=== PATIENT | female | born 1935 | race Two or more races ===

== ENCOUNTER 2019-03-04 08:14 | Emergency (ER) | payer OTHER ==
[~2019-03-04] VITALS: Ht 167.6 cm; Wt 81.2 kg
--- NOTE | 2019-03-04 08:20 | NUR ---
[facility],C/O ITCHY GENERALIZED BODY RASH. PT AAOX4, VSS, BREATHING EVEN AND UNLABORED W/ NAD, AMBULATORY W/ ASSISTANCE. PT CONNECTED TO THE MONITOR.
--- NOTE | 2019-03-04 08:43 | NUR ---
AWAITING FOR MD HASKINS.
--- NOTE | 2019-03-04 09:23 | NUR ---
CALLED [facility] FOR TRANSPORT, ETA 30MIN TRIP# [id number]
--- NOTE | 2019-03-04 09:28 | NUR ---
[facility] [phone]
[2019-03-04] MEDS ORDERED: BENAZEPRIL HCL 10 MG TABLET ONE (10:22)
[2019-03-04] MEDS ORDERED: BENAZEPRIL HCL 10 MG TABLET PO ONE (10:30)
--- NOTE | 2019-03-04 12:27 | NUR ---
ETA 1400 TRIP #[id number]
[2019-03-04 13:51] VITALS: BP 149/84
== END 2019-03-04 13:52 ==
LOC: ER 08:21
DX: B86 Scabies (principal); I10 Essential (primary) hypertension; E11.9 Type 2 diabetes mellitus without complications; Z90.710 Acquired absence of both cervix and uterus; Z90.89 Acquired absence of other organs; Z98.890 Other specified postprocedural states; Z88.0 Allergy status to penicillin; Z88.2 Allergy status to sulfonamides

== ENCOUNTER 2019-03-21 11:05 | Emergency (ER) | payer OTHER ==
[~2019-03-21] VITALS: Ht 167.6 cm; Wt 70.8 kg
--- NOTE | 2019-03-21 11:10 | NUR ---
SEEN BY DR GALLEGOS
--- NOTE | 2019-03-21 11:11 | NUR ---
PT DANNY, FROM ALF HOME, C/O DIARRHEA SINCE YESTERDAY. PT STATES SHE HAS ABDOMINAL PAIN. PT AAOX2, VSS, BREATHING EVEN AND UNLABORED ON ROOM AIR. PT CONNECTED TO THE MONITOR AND POX
--- NOTE | 2019-03-21 11:23 | NUR ---
OFFERED A BEDPAIN FOR URINE SAMPLE, PER PATIENT, "NO" WILL OFFER AGAIN LATER.
[2019-03-21 11:24] LABS: BASOPHILS % (AUTO) 0.5 % (0.0-2.0); EOSINOPHILS % (AUTO) 0.4 % (0.0-6.0); HEMATOCRIT 41 % (33-45); HEMOGLOBIN 13.3 g/dL (11.5-14.8); LYMPHOCYTES # (AUTO) 1.2 /CMM (0.8-4.8); LYMPHOCYTES % (AUTO) 11.2 % (20.0-44.0); MEAN CORPUSCULAR HGB CONC 33 g/dl (31.0-36.0); MEAN CORPUSCULAR VOLUME 86 fL (82-100); MONOCYTES # (AUTO) 0.8 /CMM (0.1-1.30); MONOCYTES % (AUTO) 7.1 % (2.0-12.0); NEUTROPHILS # (AUTO) 8.7 /CMM (1.8-8.9); NEUTROPHILS % (AUTO) 80.8 % (43.0-81.0); PLATELET COUNT (AUTO) 181 /CMM (150-450); RED BLOOD CELL COUNT(AUTO) 4.73 MIL/uL (4.0-5.2); WHITE BLOOD COUNT (AUTO) 10.7 K/uL (4.3-11.0)
--- NOTE | 2019-03-21 11:28 | NUR ---
SPOKE WITH "LAURIE" AT [facility], PER LAURIE, WILLING TO TAKE PATIENT BACK.
[2019-03-21 11:32] LABS: CALCIUM, SERUM 9.9 mg/dL (8.5-10.1); CARBON DIOXIDE 23 mmol/L (21-32); CHLORIDE 103 mmol/L (98-107); CREATININE 1.5 mg/dL (0.6-1.3); GLUCOSE 119 mg/dL (74-106); POTASSIUM 5.1 mmol/L (3.5-5.1); SODIUM SERUM 140 mmol/L (136-145); UREA NITROGEN, BLOOD 27 mg/dL (7-18)
[2019-03-21 11:38] LABS: ALANINE AMINOTRANSFERASE 20 U/L (12-78); ALBUMIN 3.8 g/dL (3.4-5.0); ALKALINE PHOSPHATASE 102 U/L (46-116); ASPARTATE AMINOTRANSFERASE 16 U/L (15-37); BILIRUBIN,DIRECT 0.2 mg/dL (0.0-0.2); BILIRUBIN,TOTAL 1.4 mg/dL (0.2-1.0); TOTAL PROTEIN, SERUM 8.2 g/dL (6.4-8.2)
--- NOTE | 2019-03-21 11:49 | NUR ---
CALLED [facility] FOR BLS [facility]. ETA 30 MIN TRIP# [id number]
--- NOTE | 2019-03-21 11:55 | NUR ---
ASKED PATIENT IF SHE NEEDS A BED BORGES, PER PATIENT, "NO"
--- NOTE | 2019-03-21 12:27 | NUR ---
Patient discharged to FACILITY in stable condition. Written and verbal after care instructions given. Patient verbalizes understanding of instruction.
[2019-03-21 12:28] VITALS: BP 125/78
--- NOTE | 2019-03-21 12:33 | NUR ---
REPORT GIVEN TO [facility]. PATIENT IN STABLE CONDITION. NO EPISODE OF DIARRHEA AT THIS TIME, UNABLE TO COLLECT URINE AND C.DIFF SPECIMEN, DR. GALLEGOS AWARE. PATIENT LEFT IN STABLE CONDITION TO [facility].
== END 2019-03-21 12:41 ==
LOC: ER 11:07
DX: R19.7 Diarrhea, unspecified (principal); I10 Essential (primary) hypertension; E11.9 Type 2 diabetes mellitus without complications; Z90.710 Acquired absence of both cervix and uterus; Z90.89 Acquired absence of other organs; Z98.890 Other specified postprocedural states; Z88.0 Allergy status to penicillin; Z88.2 Allergy status to sulfonamides
CPT/HCPCS: 36415; 80048-TC; 80076-TC; 85025-TC

== ENCOUNTER 2020-04-20 10:45 | Emergency (ER) | payer MEDICARE, OTHER ==
[~2020-04-20] VITALS: Ht 167.6 cm; Wt 70.3 kg
[2020-04-20] MEDS ORDERED: QUET50TA PO (11:03)
[2020-04-20] MEDS ORDERED: BENA10TA74 PO (11:03)
[2020-04-20] MEDS ORDERED: ESCI20TA PO (11:03)
[2020-04-20] MEDS ORDERED: OMEP40CA13 PO (11:03)
[2020-04-20] MEDS ORDERED: LEVE500T20 PO (11:03)
[2020-04-20] MEDS ORDERED: LEVO25TA9 PO (11:03)
[2020-04-20] MEDS ORDERED: DONE10TA44 PO (11:03)
[2020-04-20] MEDS ORDERED: AMLO-212 PO (11:03)
[2020-04-20 11:52] LABS: BASOPHILS % (AUTO) 0.3 % (0.0-2.0); EOSINOPHILS % (AUTO) 0.1 % (0.0-6.0); HEMATOCRIT 39 % (33-45); HEMOGLOBIN 12.6 g/dL (11.5-14.8); LYMPHOCYTES # (AUTO) 0.5 /CMM (0.8-4.8); LYMPHOCYTES % (AUTO) 11.2 % (20.0-44.0); MEAN CORPUSCULAR HGB CONC 32 g/dl (31.0-36.0); MEAN CORPUSCULAR VOLUME 87 fL (82-100); MONOCYTES # (AUTO) 0.6 /CMM (0.1-1.30); NEUTROPHILS # (AUTO) 3.3 /CMM (1.8-8.9); NEUTROPHILS % (AUTO) 75.4 % (43.0-81.0); PLATELET COUNT (AUTO) 125 /CMM (150-450); RED BLOOD CELL COUNT(AUTO) 4.48 MIL/uL (4.0-5.2); WHITE BLOOD COUNT (AUTO) 4.4 K/uL (4.3-11.0)
[2020-04-20 12:05] LABS: CALCIUM, SERUM 8.6 mg/dL (8.5-10.1); CARBON DIOXIDE 28 mmol/L (21-32); CHLORIDE 102 mmol/L (98-107); CREATININE 1.5 mg/dL (0.6-1.3); GLUCOSE 113 mg/dL (74-106); POTASSIUM 3.6 mmol/L (3.5-5.1); SODIUM SERUM 138 mmol/L (136-145); UREA NITROGEN, BLOOD 20 mg/dL (7-18)
[2020-04-20 12:11] LABS: ALANINE AMINOTRANSFERASE 20 U/L (12-78); ALBUMIN 3.5 g/dL (3.4-5.0); ALKALINE PHOSPHATASE 111 U/L (46-116); ASPARTATE AMINOTRANSFERASE 21 U/L (15-37); BILIRUBIN,DIRECT 0.1 mg/dL (0.0-0.2); BILIRUBIN,TOTAL 0.4 mg/dL (0.2-1.0); LIPASE 102 U/L (73-393); TOTAL PROTEIN, SERUM 7.4 g/dL (6.4-8.2)
[2020-04-20] MEDS: IV NS 0.9% 500 ML BAG IV ONE (12:15)
--- NOTE | 2020-04-20 12:20 | NUR ---
[facility]ALI BANG FROM [facility] FOR VOMITING AND DIARRHEA, TESTED FOR COVID YESTERDAY, NO RESULT YET. PT AAOX1, VSS. RR EVEN & UNLABORED. ON OLIVE KNOCKER, SR. WILL CONT TO MONITOR.
[2020-04-20 13:16] LABS: BILIRUBIN,URINE NEGATIVE (NEGATIVE); BLOOD, URINE NEGATIVE Ery/uL (NEGATIVE); COLOR,URINE YELLOW (YELLOW); LEUKOCYTE ESTERASE ,URINE NEGATIVE (NEGATIVE); NITRITE, URINE NEGATIVE (NEGATIVE); PH,URINE 5.5 (5.0-8.0); PROTEIN,URINE TRACE mg/dl (NEGATIVE); UGLUCOSE NEGATIVE (NEGATIVE); UROBILINOGEN,URINE 0.2 EU/dL (0.2)
[2020-04-20 13:42] LABS: BACTERIA,URINE Rare /HPF (None Seen); RBC,URINE 0-2 /HPF (0-2); SQUAMOUS EPITHELIAL CELL,UR Moderate /HPF (None Seen); WBC,URINE 0-2 /HPF (0-3)
--- NOTE | 2020-04-20 14:24 | NUR ---
CALLED [facility] FOR TRANSPORT TO [facility]F. ETA 1500. TRIP NUMBER [id number].
[2020-04-20] MEDS ORDERED: CLONIDINE HCL 0.1 MG TABLET ONE (15:12)
--- NOTE | 2020-04-20 15:15 | NUR ---
REPORT GIVEN TO YUE KATHLEEN FOR [facility].
[2020-04-20] MEDS: CLONIDINE HCL 0.1 MG TABLET PO ONE (15:20)
--- NOTE | 2020-04-20 15:25 | NUR ---
Patient discharged to home in stable condition. Written and verbal after care instructions given EMS. PT ENROUTE TO [facility] VIA BLS.
[2020-04-20 15:29] VITALS: BP 178/80
== END 2020-04-20 15:29 ==
LOC: ER 10:46
DX: R11.10 Vomiting, unspecified (principal); R19.7 Diarrhea, unspecified; I10 Essential (primary) hypertension; E11.9 Type 2 diabetes mellitus without complications; Z90.710 Acquired absence of both cervix and uterus; Z90.89 Acquired absence of other organs; Z98.890 Other specified postprocedural states; Z88.0 Allergy status to penicillin; Z88.2 Allergy status to sulfonamides; Z79.899 Other long term (current) drug therapy
CPT/HCPCS: 36415; 80048; 80076; 81001; 83690; 85025; 99283; J7040